=== PATIENT | female | born 1970 | race Hispanic/Latino ===

== ENCOUNTER → 2023-06-20 | Outpatient (CLI) | payer BC ==
[2023-06-20 09:15] LABS: CREATININE 0.8 mg/dL (0.5-1.5)
== END | disposition home or self-care (01) ==
LOC: LAB 08:25
PROVIDERS: ATTEND Otolaryngology Plastic Surgery within the Head & Neck
DX: H90.3 Sensorineural hearing loss, bilateral (principal)
CPT/HCPCS: 36415; 82565; 84520

== ENCOUNTER → 2023-06-24 | Outpatient (CLI) | payer BC ==
[~2023-06-24] MED LIST: GADOTERATE MEGLUMINE 10 MMOL/20 ML VIAL IV ONE
== END | disposition home or self-care (01) ==
LOC: RAH 13:05
PROVIDERS: ATTEND Otolaryngology Plastic Surgery within the Head & Neck
DX: H90.3 Sensorineural hearing loss, bilateral (principal)
CPT/HCPCS: 70553; A9575